=== PATIENT | male | born 1995 | race Caucasian/White ===

== ENCOUNTER → 2017-05-12 | Outpatient (CLI) | payer OTHER | LOC: RAD 15:55 | DX: M54.5 Low back pain (principal); M51.36 Other intervertebral disc degeneration, lumbar region | CPT/HCPCS: 72100 ==

== ENCOUNTER 2021-02-21 16:10 | Emergency (ER) | payer OTHER ==
[~2021-02-21 16:10] MED LIST: ANUSOL-HC CREAM30 GM PR; NORCO 5-325 TA1 EACH PO; TORADOL 10 MG T10 MG PO
[2021-02-21 16:59] LABS: HEMOGLOBIN 16.9 gm/dl (14.0-17.5); RED BLOOD COUNT 5.51 M/UL (4.20-5.50); WHITE BLOOD COUNT 8.6 K/UL (4.5-11.0)
[2021-02-21 17:26] LABS: BUN/CREATININE RATIO 11 (0-10)
== END 2021-02-21 20:06 | disposition home or self-care (01) ==
LOC: ER1 16:10
PROVIDERS: Preventive Medicine Occupational Medicine
DX: S30.1XXA Contusion of abdominal wall, initial encounter (principal); I10 Essential (primary) hypertension; X58.XXXA Exposure to other specified factors, initial encounter
CPT/HCPCS: 80053; 85025; 99284; J7030; Q9967